=== PATIENT | male | born 1975 | race Caucasian/White ===

== ENCOUNTER 2017-08-08 15:07 | Emergency (ER) | payer OTHER, BC ==
[2017-08-08] MEDS ORDERED: ceFAZolin 1 GM in NS 100 ML IV ONE ×2 (16:09→16:30)
[2017-08-08] MEDS ORDERED: TDAP ADULT 0.5 ML INJ (BOOSTRIX) IM ONE ×2 (16:09→16:23)
[2017-08-08] MEDS ORDERED: ceFAZolin 2 GM/DEXTROSE 100 ML IV ONE (17:00)
--- NOTE | 2017-08-08 17:13 | EDPHY ---
H & P Stated Complaint: seater grinder hit back and lac to r thumb and fingers - Personal History Current Tetanus/Diphtheria Vaccine: Yes - Medical/Surgical History Hx Asthma: No Hx Chronic Respiratory Disease: No Hx Diabetes: No Hx Cardiac Disease: No Hx Renal Disease: No Hx Cirrhosis: No Hx Alcoholism: No Hx HIV/AIDS: No Hx Splenectomy or Spleen Trauma: No Other PMH: denies - Social History Smoking Status: Current every day smoker HPI/ROS: Chief complaint: Right hand injury History of present illness: This is a 42-year-old male who presents to the emergency department for right hand injury. Patient was using a seater grinder when it struck his hand. He has noted a large laceration to his thumb and the tips of the 3rd and 4th finger. Pain and bleeding. Controlled with a dressing. There is some numbness in the thumb. He is still moving the fingers well. No report of abnormal coolness. No other injuries reported. He is not sure if his tetanus shot is up-to-date. (Ridge Srivastava) - Physical Exam Exam: General: Alert, nontoxic Skin: 2.5 cm laceration to the right thumb, significant tissue defect. Abrasions to the 3rd finger, 2 cm laceration to the 4th finger. Musculoskeletal: He is still moving all digits in all joints in all baron well in the right hand. Moving the wrist without difficulty. Vascular: Capillary refill is brisk in all digits of the right hand. Radial pulse 2 +. Neurologic: Loss of sensation along the ulnar aspect of the right thumb. Sensation appears to be intact in all other fingers. (Ridge Srivastava) Constitutional: Initial Vital Signs Temperature (C) 36.9 C 08/08/17 15:14 Heart Rate 89 08/08/17 15:14 Respiratory Rate 18 08/08/17 15:14 Blood Pressure 127/67 H 08/08/17 15:14 O2 Sat (%) 95 08/08/17 15:14 O2 Delivery Mode Room Air Allergies/Adverse Reactions: No Known Allergies Allergy (Unverified 08/08/17 15:14) Home Medications: Medication Instructions Recorded Cephalexin [Keflex] 500 mg PO TID 7 Days cap 08/08/17 Medical Decision Making - Diagnostics Imaging: I viewed and interpreted images myself Procedures: Procedure: Laceration repair. Verbal consent was obtained from the patient. The 4.5 cm complex, deep laceration on the right thumb and right 4th digit was anesthetized in the usual fashion using a digital block. The wound was irrigated, draped and explored to its base with a gloved finger. There were no deep structures involved. No tendon injury was identified. The wound was repaired with 4 0 Prolene and loosely interrupted simple pattern. Good hemostasis was achieved and patient tolerated procedure well. The procedure was performed by myself. (Maria R Maldonado) Procedure: Splint placement. A hand splint was applied. After application of the splint I returned and re- examined the patient. The splint was adequately immobilizing the joint and distal to the splint the patient's circulation and sensation was intact. (Ridge Srivastava) ED Course/Re-evaluation: Patient is seen under the supervision of my secondary supervising physician Dr. Cristofer Whitfield. Patient presents to the emergency department for right hand injury. X-ray is concerning for bony injury to the right thumb. Right thumb appears to have nerve injury. Significant tissue defect to the actual wound. Patient's tetanus is updated. He is given [address] Marques, hand surgeon , has seen patient in the emergency room. He recommends close loose primary closure. This is performed by Maria R ZULUAGA. Dr. Marques plans on seeing patient next Friday to take the patient to the OR for definitive care. Home care is discussed including pain management and the use of home antibiotics. Return precautions are given. Patient voiced understanding and agreement with plan. ( Ridge Srivastava) Differential Diagnosis: Included but not limited to laceration, deep structure involvement complaint body contamination (Ridge Srivastava) - Data Points Medications Given: Discontinued Medications Diphtheria/Tetanus/Acell Pertussis (Boostrix) 0.5 ml IM .ONCE ONE Stop: 08/08/17 16:10 Last Admin: 08/08/17 16:24 Dose: 0.5 ml Cefazolin Sodium/Dextrose (Ancef 1 Gm (Premix)) 50 mls @ 200 mls/hr IV EDNOW ONE Stop: 08/08/17 17:14 Last Admin: 08/08/17 18:05 Dose: 50 mls Departure - Departure Disposition: Home, Routine, Self-Care Clinical Impression: Hand laceration Qualifiers: Encounter type: initial encounter Foreign body presence: without foreign body Laterality: right Qualified Code(s): S61.411A - Laceration without foreign body of right hand, initial encounter Condition: Good Instructions: Care For Your Stitches (ED), Laceration (ED), Acute Wounds (ED) Additional Instructions: Follow-up with the hand surgeon on Friday for recheck as discussed with him Take antibiotics as prescribed If symptoms worsen or new symptoms develop return to the emergency room for recheck Referrals: [facility] [Other] - As per Instructions Clifford Marques MD [Medical Doctor] - As per Instructions Prescriptions: Cephalexin [Keflex] 500 mg PO TID 7 Days cap
[2017-08-08 18:36] VITALS: BP 118/78; PULSE 75; RESP 16; TEMP 98.6; O2SAT 97
--- NOTE | 2017-08-09 12:55 | GCON ---
[f rep st] CONSULTATION DATE OF CONSULTATION: 08/08/2017 CHIEF COMPLAINT: Right thumb laceration and lacerations to the long and ring fingers. HISTORY OF PRESENT ILLNESS: The patient is a 42-year-old male who presented to the emergency departm ent on August 08 after while at work he was using a inner diameter grinder tool, struck his hand with the inner diameter grinder tool. Ther e was a large laceration to his thumb and some small lacerations to the long and ring finger tips. T he patient was evaluated by Dr. Whitfield and Ridge Srivastava in the ER. This is a consultation for them. On evaluation, x-ray was performed. Per the ER staff, the patient had a loss of sensation at the uln ar aspect of his thumb. He was then blocked for pain control, and I was called for evaluation. OBJECTIVE: VITAL SIGNS: Stable. GENERAL: On the gurney, in no acute distress, alert and oriented. EXTREMITIES: Right hand, there are abrasions to the long finger and some to the ring finger that i s superficial. On examination of the thumb, there is a 2.5 cm laceration to the ulnar and volar aspe ct of the thumb. The thumb appears well perfused. His EPL and FPL are intact to testing. I am unab le to assess sensation as he has been blocked. IMAGING: X-rays of the thumb show a cortical defect in the ulnar aspect of the proximal phalanx. Ho wever, there is no complete fracture. ASSESSMENT/PLAN: Right thumb laceration with likely digital nerve injury as assessed by the ER staff . I had a discussion with the patient about treatment options. As he has likely a digital nerve inj ury, repair of the nerve is indicated. However, as he was using a inner diameter grinder tool, the zone of injury is oft en large with a inner diameter grinder tool, and he may have a significant defect of that nerve that may require grafting or a nerve connector. Recommended that the ER staff irrigate his wound well and close it. He shoul d be given Ancef as there was a cortical defect in the bone and given Keflex for home. I will contac t the patient myself and try to arrange repair of the nerve on Friday with the appropriate equipment for possible nerve graft or nerve connector. He understood and agreed with the plan. /[id number]/MODL
== END 2017-08-08 18:36 | disposition home or self-care (01) ==
PROC: 0HQFXZZ Repair Right Hand Skin, External Approach (ICD-10-PCS; principal; 2017-08-08)
DX: S61.411A Laceration without foreign body of right hand, initial encounter (principal); F17.200 Nicotine dependence, unspecified, uncomplicated; Z23 Encounter for immunization; W22.8XXA Striking against or struck by other objects, initial encounter
CPT/HCPCS: 96365; J0690

== ENCOUNTER 2017-08-19 14:47 | Day surgery (SDC) | payer OTHER, BC ==
[~2017-08-19 14:47] MED LIST: HYDROCODONE/APAP 5/325 TAB PO SCH
[2017-08-19] MEDS ORDERED: ceFAZolin 2 GM/SWFI 2 GM/20 ML SYR IVP ONE (15:07)
[2017-08-19] MEDS ORDERED: LR 1,000 ML IV ONE (15:10)
[2017-08-19 15:15] VITALS: PULSE 61
[2017-08-19] MEDS ORDERED: BACITRACIN 50,000 UNITS/10 ML SYR IRR ONE (15:36)
[2017-08-19] MEDS ORDERED: BUPIVACAINE 0.5% 30 ML SDV ONE (15:36)
--- NOTE | 2017-08-19 16:06 | PDHPUP ---
History & Physical Update H&P update statement: This history and physical update is based on an assessment of the patient which was completed after admission or registration (within 24 hours), but prior to the surgery/procedure. H&P update: H&P reviewed & patient examined, no change in patient's condition since H&P completed
--- NOTE | 2017-08-19 16:12 | PDANEPAE ---
ANE History of Present Illness repair of tendon, R thumb ANE Past Medical History - Cardiovascular History Hx Hypertension: No Hx Arrhythmias: No Hx Chest Pain: No Hx Coronary Artery / Peripheral Vascular Disease: No Hx CHF / Valvular Disease: No Hx Palpitations: No - Pulmonary History Hx COPD: No Hx Asthma/Reactive Airway Disease: No Hx Recent Upper Respiratory Infection: No Hx Oxygen in Use at Home: No Hx Sleep Apnea: No Sleep Apnea Screening Result - Last Documented: Negative - Neurologic History Hx Cerebrovascular Accident: No Hx Seizures: No Hx Dementia: No - Endocrine History Hx Diabetes: No Hypothyroid: No Hyperthyroid: No Obesity: no - Renal History Hx Renal Disorders: No - Liver History Hx Hepatic Disorders: No - Neurological & Psychiatric Hx Hx Neurological and Psychiatric Disorders: No - Cancer History Hx Cancer: No - Congenital Disorder History Hx Congenital Disorders: No - GI History GERD: no Hx Gastrointestinal Disorders: No - Other Health History Other Health History: 1 missing tooth lower back - Chronic Pain History Chronic Pain: No - Surgical History Prior Surgeries: none ANE Review of Systems Review of Systems: - Exercise capacity METS (RN): 4 METS ANE Patient History - Allergies Allergies/Adverse Reactions: No Known Allergies Allergy (Unverified 08/08/17 15:14) - NPO status NPO Since - Liquids (Date): 08/19/17 NPO Since - Liquids (Time): 11:00 NPO Since - Solids (Date): 08/18/17 NPO Since - Solids (Time): 05:30 - Smoking Hx Smoking Status: Current every day smoker (1 ppd X 17 years, occassional morning phlegm) - Alcohol Use Alcohol Use: Heavy (30 beers/week) - Family Anes Hx Family Anes Hx: neg - N/A Family Hx Anesthesia Complications: none ANE Labs/Vital Signs - Vital Signs Blood Pressure: 112/68 Heart Rate: 61 Respiratory Rate: 16 O2 Sat (%): 95 Height: 187.96 cm Weight: 77.111 kg ANE Physical Exam - Airway Neck exam: FROM Mallampati Score: Class 1 Mouth exam: normal dental/mouth exam (missing some molars) - Pulmonary Pulmonary: clear to auscultation - Cardiovascular Cardiovascular: regular rate and rhythym - ASA Status ASA Status: II ANE Anesthesia Plan Anesthesia Plan: GA w LMA
[2017-08-19] MEDS ORDERED: MIDAZOLAM 2 MG/2 ML VIAL IVP ONE (16:14)
[2017-08-19] MEDS ORDERED: PROPOFOL 200 MG/20 ML VIAL ONE (16:19)
[2017-08-19] MEDS ORDERED: fentaNYL 250 MCG/5 ML INJ ONE ×2 (16:19→18:22)
[2017-08-19] MEDS ORDERED: DEXAMETHASONE 4 MG/ML VIAL ONE ×2 (16:20)
[2017-08-19] MEDS ORDERED: KETOROLAC 30 MG/1 ML SDV ONE (19:46)
[2017-08-19] MEDS ORDERED: ONDANSETRON 4 MG/2 ML VIAL ONE (19:46)
[2017-08-19] MEDS ORDERED: fentaNYL 100 MCG/2 ML INJ IVP PRN (19:55)
[2017-08-19] MEDS ORDERED: HYDROCODONE/APAP 5/325 TAB PO PRN (19:55)
[2017-08-19] MEDS ORDERED: NALOXONE HCL 0.4 MG/ML INJ IVP PRN (19:55)
[2017-08-19] MEDS ORDERED: OXYCODONE/APAP 5/325 TAB PO PRN (19:55)
[2017-08-19] MEDS ORDERED: BACITRACIN ZINC 14.2 GM OINTTUBE TP ONE (20:18)
[2017-08-19] MEDS ORDERED: HYDROCODONE/APAP 5/325 TAB PO SCH (20:57)
[2017-08-19 21:13] VITALS: RESP 13
[2017-08-19 21:23] VITALS: TEMP 99; O2SAT 93
[2017-08-19 21:40] VITALS: BP 119/61
--- NOTE | 2017-08-20 08:05 | POSTANESTH ---
Post Anesthetic Evaluation Cardiovascular Status: Normal, Stable Respiratory Status: Normal, Stable Level of Consciousness/Mental Status: Can Participate in Eval Pain Control: Adequate, Prn Tx Ordered Nausea/Vomiting Control: Adequate, Prn Tx Ordered Complications Possibly Related to Anesthesia: None Noted
--- NOTE | 2017-08-20 22:59 | GOP ---
[f rep st] OPERATIVE REPORT DATE OF OPERATION: 08/19/2017 SURGEON: Clifford Marques MD PREOPERATIVE DIAGNOSIS: 1. R thumb and R ring finger open wounds down to bone 2. R thumb laceration of ulnar digital nerve POSTOPERATIVE DIAGNOSIS: same as above + R thumb laceration of sensory branch of radial nerve PROCEDURE PERFORMED: 1. Irrigation and debridement of thumb and ring finger of skin, subcutaneous tissue, fascia and bone. 2. Repair of thumb ulnar digital nerve with nerve allograft. 3. Repair of the sensory branch of the radial nerve with nerve allograft. FINDINGS: ESTIMATED BLOOD LOSS: 10 cc. DESCRIPTION OF PROCEDURE: The patient was seen in the preoperative holding area. Consent was confirmed, surgical site was marked. He was given the opportunity to ask questions. All his questions were answered. The patient was then taken back to the operative suite. Care was taken to transfer the patient on the operating table. Great care was taken to ensure that all bony prominences were padded, and that the patient was warmed. A time-out was called including surgical and anesthesia teams confirming the surgical site and procedure to be performed. The right upper extremity was then prepped and draped in the usual sterile fashion. 2 g of Ancef were given prior to incision. Esmarch was used to exsanguinate the right upper extremity and was inflated to 250 mmHg. We then began the procedure by debriding both lacerations. We began debridement of the ring finger. Any nonviable appearing skin was then excised. The wound was explored. It appeared to spread to the distal phalanx at 1 point. This was very carefully irrigated. A curette was used to debride this. We continued sharp debridement with the scissor to irrigating the bone well and the rest of the wound. The thumb was addressed. The thumb had a long over 4 cm laceration that was ulnar-sided where the blade struck and then it went up the entire aspect of the volar thumb. To gain access , the traumatic laceration was exposed. The skin edges were debrided sharply with scissors as was any contaminated appearing tissue. After debriding the thumb, the incision was extended proximally to be able to visualize the thumb digital nerve. The digital nerve was identified both distally and proximally. After exposing the structures of the finger, the flexor tendon appeared to be un violated. There was a cortical break in the bone. It was a significantly sized, 2 cm area of it shaved off with the watch crystal edge grinder over his bone. There were no full-thickness defects. Extending our incision finding our nerve ends. The tourniquet was let down to visualize the healthy muscles of the nerve endings. After the tourniquet was let down, the nerve proximally was cut several mm with a sharp blade against a sterile tongue blade to visualize a healthy bleeding fascicles. Proximally however the nerve was bruised about a cm segment. This is likely where the blade struck. This was a large zone of injury. The nerve was sequentially cut until bleeding appeared with healthy bleeding fascicles. The remainder of the thumb was explored. A branch of the SBRN was then identified dorsally. Its distal end was also identified. I turned my attention to repairing the ulnar digital nerve of the thumb injury with an AxoGen nerve graft. The graft was necessary as the defect in the nerve was over a cm. A 9-0 nylon suture was used to approximate the graft 1st proximally and then distally. This created a nice coaptation of the nerve ends. Prior to doing so, I then turned my attention to the SBRN branch. This was quite a small thin branch. Knife was used longitudinally with the graft to provide a tendon graft in the same fashion, 9-0 nylon was used to suture the graft both distally and proximally to the nerve endings. This was all done with an operating microscope. After continuing this portion, tourniquet was again let down. After the tourniquet was let down, there was a good capillary refill in the thumb. All bleeding was controlled. The incisions both the ring finger and thumb were closed mostly with 4-0 chromic. Several mounds were used in the dorsal aspect of the thumb where the wound appeared uncovered. Sterile dressing was applied. The patient tolerated procedure well, was taken back in stable condition. IMPLANTS USED: AxoGen nerve allograft. INDICATION FOR PROCEDURE: The patient is a 42-year-old male who sustained his injury the week prior. He was using a watch crystal edge grinder. This was a construction controller , and the blade kicked and struck him into his thumb and ring finger. The patient was initially evaluated in the ER. I was present in the ER briefly for his initial evaluation and I found that he had anesthesia at the right aspect of his thumb. The patient was later seen by me in clinic. This was confirmed. He had complete loss of 2 point at the ulnar aspect of his thumb with a large laceration, which was very concerning for a digital nerve injury. I discussed with the patient that his upper extremity indicated a digital nerve injury. I would also address the wounds in the thumb and ring finger to clean them up to prevent infection. Prior to the surgery, he had intact APL, EPL, and FPL and the decision was made not to address those. He had a cortical break in his thumb proximal phalanx. He had a cortical break in the thumb metacarpal. However, this appeared stable and decision was made prior not to immobilize him. I discussed with him the risks and benefits of operative treatment. Risks include pain, bleeding, infection, damage to any surrounding structures, neuroma formation, chronic pain, poor return of sensation. The patient understood the risks and wished to proceed. POSTOP CONDITION: Stable. POSTOPERATIVE PLAN: The patient will follow up with me in the office in 10-14 days. He may remove his dressing in 3 days. /[id number]/MODL MTDD
== END 2017-08-19 21:32 | disposition home or self-care (01) ==
LOC: FSGY 14:47
PROVIDERS: ATTEND Orthopaedic Surgery Hand Surgery
PROC: 01U40KZ Supplement Ulnar Nerve with Nonautologous Tissue Substitute, Open Approach (ICD-10-PCS; principal; 2017-08-19 16:00)
PROC: 01U Peripheral Nervous System, Supplement (ICD-10-PCS; principal; 2017-08-19 16:00)
PROC: 0JDJ0ZZ Extraction of Right Hand Subcutaneous Tissue and Fascia, Open Approach (ICD-10-PCS; principal; 2017-08-19 16:00)
DX: S64.31XA Injury of digital nerve of right thumb, initial encounter (principal); S64.21XA Injury of radial nerve at wrist and hand level of right arm, initial encounter; S61.214A Laceration without foreign body of right ring finger without damage to nail, initial encounter; S61.011A Laceration without foreign body of right thumb without damage to nail, initial encounter; S62.511A Displaced fracture of proximal phalanx of right thumb, initial encounter for closed fracture; F17.200 Nicotine dependence, unspecified, uncomplicated; W45.8XXA Other foreign body or object entering through skin, initial encounter; Y99.0 Civilian activity done for income or pay
CPT/HCPCS: J0690; J1100; J1885; J2250; J2405; J2704; J3010